=== PATIENT | male | born 1980 ===

== ENCOUNTER 2018-10-22 09:13 | Emergency (ER) | payer SELFPAY ==
[2018-10-22 09:17] VITALS: BMI 25.3
[2018-10-22 09:19] VITALS: BP 109/69; PULSE 69; RESP 16; TEMP 97.8
--- NOTE | 2018-10-22 09:45 | ED PDOC ---
HPI: Male Pain Time Seen by Provider: 10/22/18 09:24 Chief Complaint (Nursing): Male Genitourinary Chief Complaint (Provider): testicular pain History Per: Patient History/Exam Limitations: no limitations Onset/Duration Of Symptoms: Other (Chronic for x7 years ) Current Symptoms Are (Timing): Still Present Associated Symptoms: Urinary Symptoms (dysuria). denies: Fever, Chills, Nausea, Vomiting, Diarrhea Additional Complaint(s): Rico Reeves is a 38 year old male, with no significant past medical history, who presents to the emergency department complaining of a chronic bilateral testicular ongoing for x7 years and penile pain associated with dysuria and frequency. Patient also reports pain in the suprapubic area and states penile pain is new which prompted ED visit. Patient reports being seen at the clinic who referred him to an urologist. Patient states urologist removed a cyst from his testicle. He is sexually active with a single partner but doesn't use protection. He denies any fever, chills, nausea, vomit, diarrhea, hematuria, penile discharge or other medical complaints. PMD: Clinic Past Medical History Reviewed: Historical Data, Nursing Documentation, Vital Signs Vital Signs: Last Vital Signs Temp 97.8 F 10/22/18 09:17 Pulse 69 10/22/18 09:17 Resp 16 10/22/18 09:17 BP 109/69 10/22/18 09:17 Pulse Ox 99 10/22/18 09:17 - Medical History PMH: No Chronic Diseases Denies: Chronic Kidney Disease - Surgical History Other surgeries: epididymal cyst removal - Family History Family History: States: Unknown Family Hx - Social History Alcohol: None Drugs: Denies - Immunization History Hx Tetanus Toxoid Vaccination: No Hx Influenza Vaccination: No Hx Pneumococcal Vaccination: No - Home Medications Home Medications: Ambulatory Orders Medication Instructions Recorded Gabapentin 100 mg PO TID 09/26/14 Meloxicam [Mobic] 15 mg PO DAILY 09/26/14 Naproxen [Naprosyn] 500 mg PO BID PRN #15 tablet 10/22/18 - Allergies Allergies/Adverse Reactions: Allergies Allergy/AdvReac Type Severity Reaction Status Date / Time No Known Allergies Allergy Unverified 08/30/14 15:37 Review of Systems ROS Statement: Except As Marked, All Systems Reviewed And Found Negative Constitutional: Negative for: Fever, Chills Gastrointestinal: Positive for: Abdominal Pain (suprapubic). Negative for: Nausea, Vomiting, Diarrhea Genitourinary Male: Positive for: Dysuria, Frequency, Scrotal Pain, Penile Pain. Negative for: Hematuria, Penile Discharge Physical Exam - Reviewed Nursing Documentation Reviewed: Yes Vital Signs Reviewed: Yes - Physical Exam Appears: Positive for: No Acute Distress Head Exam: Positive for: ATRAUMATIC, NORMAL INSPECTION, NORMOCEPHALIC Skin: Positive for: Normal Color, Warm, Dry Eye Exam: Positive for: Normal appearance, EOMI, PERRL Neck: Positive for: Normal, Painless ROM Cardiovascular/Chest: Positive for: Regular Rate, Rhythm. Negative for: Murmur Respiratory: Positive for: Normal Breath Sounds. Negative for: Respiratory Distress Gastrointestinal/Abdominal: Positive for: Normal Exam, Soft. Negative for: Tenderness, Guarding, Rebound Male Genital Exam: Positive for: normal genitalia (uncircumsized), no hernia, other (Booster Assembler: HAND SIGN WRITERROSEANNE Mayer). Negative for: erythema (or edema), lesions, testicular tenderness (R), testicular tenderness (L), urethral discharge Back: Positive for: Normal Inspection. Negative for: L CVA Tenderness, R CVA Tenderness Extremity: Positive for: Normal ROM (upper and lower extremities). Negative for: Deformity, Swelling Neurological/Psych: Positive for: Awake, Alert, Normal Tone - ECG O2 Sat by Pulse Oximetry: 99 (RA) Pulse Ox Interpretation: Normal Medical Decision Making Medical Decision Making: Time: 09:24 Initial Impression: Initial Plan: --Urine dipstick --Urinalysis --Testes Duplex Complete [US] --Reevaluation 11:15 Testes US FINDINGS: RIGHT TESTICLE: Measures 4.1 x 3.4 x 1.8 cm. Normal echotexture and flow. RIGHT EPIDIDYMIS: Epididymal head measures 0.7 x 0.8 x 0.2 cm. Grossly unremarkable appearance with normal flow. LEFT TESTICLE: Measures 3.9 x 3.3 x 1.9 cm. Normal echotexture and flow. LEFT EPIDIDYMIS: Epididymal head measures 0.8 x 0.7 x 0.5 cm. Grossly unremarkable appearance with normal flow. HYDROCELE: No significant hydrocele. No focal fluid collection in the scrotum to suggest abscess. VARICOCELE: Previously noted left greater than right varicoceles are not as prominent on this present examination. Minimal amount of residual varicoceles are not excluded. OTHER FINDINGS: No scrotal wall thickening is seen. IMPRESSION: No ultrasound evidence of intratesticular mass or torsion. Scribe Attestation: Documented by Malvin Duque, acting as a scribe for Sallie Petersen MD Provider Scribe Attestation: All medical record entries made by the Scribe were at my direction and personally dictated by me. I have reviewed the chart and agree that the record accurately reflects my personal performance of the history, physical exam, medical decision making, and the department course for this patient. I have also personally directed, reviewed, and agree with the discharge instructions and disposition. Disposition - Clinical Impression Clinical Impression: Persistent testicular pain - Disposition Referrals: [facility] [Outside] Lorena Medina MD [Medical Doctor] - Disposition: Routine/Home Disposition Time: 11:45 Condition: STABLE Prescriptions: Naproxen [Naprosyn] 500 mg PO BID PRN #15 tablet PRN Reason: Pain, Moderate (4-7) Instructions: How to Perform a Testicular Self-Exam Forms: [employer] (Kazakh) Print Language: FRENCH
[2018-10-22 10:18] LABS: URINE BILIRUBIN NEGATIVE (NEGATIVE); URINE BLOOD NEGATIVE (NEGATIVE); URINE CLARITY CLEAR (Clear); URINE COLOR YELLOW (YELLOW); URINE GLUCOSE (UA) NEG (NEGATIVE); URINE LEUKOCYTE ESTERASE NEG Leu/uL (Negative); URINE PROTEIN NEGATIVE (NEGATIVE); URINE UROBILINOGEN 0.2-1.0 mg/dL (0.2-1.0)
--- NOTE | 2018-10-22 11:18 | US ---
Date of service: 10/22/2018 HISTORY: Bilateral testicular pain TECHNIQUE: Realtime sonography through the scrotum with color and doppler flow. COMPARISON: 12/28/2014 FINDINGS: RIGHT TESTICLE: Measures 4.1 x 3.4 x 1.8 cm. Normal echotexture and flow. RIGHT EPIDIDYMIS: Epididymal head measures 0.7 x 0.8 x 0.2 cm. Grossly unremarkable appearance with normal flow. LEFT TESTICLE: Measures 3.9 x 3.3 x 1.9 cm. Normal echotexture and flow. LEFT EPIDIDYMIS: Epididymal head measures 0.8 x 0.7 x 0.5 cm. Grossly unremarkable appearance with normal flow. HYDROCELE: No significant hydrocele. No focal fluid collection in the scrotum to suggest abscess. VARICOCELE: Previously noted left greater than right varicoceles are not as prominent on this present examination. Minimal amount of residual varicoceles are not excluded. OTHER FINDINGS: No scrotal wall thickening is seen. IMPRESSION: No ultrasound evidence of intratesticular mass or torsion.
[2018-10-25 15:19] VITALS: O2SAT 99
== END 2018-10-22 12:15 | disposition home or self-care (01) ==
LOC: H.ER 09:13
DX: N50.812 Left testicular pain (principal); N50.811 Right testicular pain

== ENCOUNTER 2018-12-12 16:30 | Emergency (ER) | payer OTHER, SELFPAY ==
[2018-12-12 16:30] VITALS: BMI 25.3
[2018-12-12 17:48] VITALS: PULSE 78; RESP 18; O2SAT 99
--- NOTE | 2018-12-12 18:16 | ED PDOC ---
HPI: Back Time Seen by Provider: 12/12/18 17:24 Chief Complaint (Nursing): Back Pain Chief Complaint (Provider): back pain History Per: Patient History/Exam Limitations: no limitations Additional Complaint(s): 38 y/o M with no significant PMH who presents with back pain for the past 9 days that occurred after reaching up to move hanging clothes. He has been taking Ibuprofen and Tylenol regularly with minimal improvement in pain, last dose was 400mg PO Ibuprofen 5hrs prior to arrival. States that back pain occasionally radiates to left thigh. Denies numbness or tingling in feet or fecal/urinary incontinence. Past Medical History Reviewed: Historical Data, Nursing Documentation, Vital Signs Vital Signs: Last Vital Signs Temp 98.5 F 12/12/18 17:46 Pulse 78 12/12/18 17:46 Resp 18 12/12/18 17:46 BP 103/63 12/12/18 17:46 Pulse Ox 99 12/12/18 17:46 Primary Care Provider: DoctorRosalie - Medical History PMH: No Chronic Diseases Denies: Chronic Kidney Disease - Family History Family History: States: Unknown Family Hx - Immunization History Hx Tetanus Toxoid Vaccination: No Hx Influenza Vaccination: No Hx Pneumococcal Vaccination: No - Home Medications Home Medications: Ambulatory Orders Medication Instructions Recorded Gabapentin 100 mg PO TID 09/26/14 Meloxicam [Mobic] 15 mg PO DAILY 09/26/14 Naproxen [Naprosyn] 500 mg PO BID PRN #15 tablet 10/22/18 Naproxen 500 mg PO BID PRN 7 Days tab 12/12/18 traMADol [Ultram] 50 mg PO BID PRN 3 Days tab 12/12/18 - Allergies Allergies/Adverse Reactions: Allergies Allergy/AdvReac Type Severity Reaction Status Date / Time No Known Allergies Allergy Unverified 12/12/18 17:46 Review of Systems Musculoskeletal: Positive for: Back Pain Neurological: Negative for: Weakness, Numbness Physical Exam - Reviewed Nursing Documentation Reviewed: Yes Vital Signs Reviewed: Yes - Physical Exam Appears: Positive for: No Acute Distress Back: Positive for: Normal Inspection, Vertebral Tenderness (mild tenderness on palpation of lumbar vertebrae with paravertebral tenderness mostly on left. No buttock tenderness. ) Extremity: Positive for: Capillary Refill (< 2 sec), Other (normal ROM with flexion and extension of B/L hips. ). Negative for: Normal ROM (decreased flexion and extension of back), Swelling - ECG O2 Sat by Pulse Oximetry: 99 Medical Decision Making Medical Decision Making: Thoracic and lumbar spine CT w/o contrast Toradol 30mg IM x 1 Flexeril 10mg PO x 1 Re-evaluation 2030 CT Lumbar Spine FINDINGS: ALIGNMENT: Bony alignment is anatomic. DISCS/DEGENERATIVE CHANGES: T12/L1: No significant central canal or neural foraminal stenosis. L1/L2: No significant central canal or neural foraminal stenosis. L2/L3: No significant central canal or neural foraminal stenosis. L3/4: No significant central canal or neural foraminal stenosis. L4/5: No significant central canal or neural foraminal stenosis. At L5-S1, broad-based herniated disc with posterior spurring producing moderate severe bilateral foraminal stenosis and mild canal stenosis. Vacuum disc phenomenon is seen. BONES: No acute fracture or aggressive appearing osseous lesion. SOFT TISSUES: The soft tissues are unremarkable. MISCELLANEOUS: No abnormal contrast enhancement. IMPRESSION: At L5-S1, broad-based herniated disc with posterior spurring producing moderate severe bilateral foraminal stenosis and mild canal stenosis. Vacuum disc phenomenon is seen. CT Thoracic Spine FINDINGS: BONES: No acute fracture or aggressive appearing osseous lesion. ALIGNMENT: Bony alignment is anatomic. DEGENERATIVE CHANGES: Mild multilevel degenerative spondylosis is present. SOFT TISSUES: The soft tissues are unremarkable. IMPRESSION: Mild multilevel degenerative spondylosis. No acute pathology. Case reviewed with Dr. Ibrahim of neurosurgery who states that given lack of bowel/bladder incontinence, pt can follow up as an outpatient. Tramadol 50mg PO x 1 ordered. Patient advised of addictive properties of narcotics such as Tramadol and highly encouraged to use as rescue for pain. Stable for d/c home. Disposition - Clinical Impression Clinical Impression: Lumbar herniated disc - Patient ED Disposition Is Patient to be Admitted: No Discussed With : Nahun Ibrahim Doctor Will See Patient In The: Office Counseled Patient/Family Regarding: Studies Performed, Diagnosis, Need For Followup, Rx Given - Disposition Referrals: Nahun Ibrahim MD [Staff Provider] - Disposition: Routine/Home Disposition Time: 22:28 Condition: STABLE Additional Instructions: Follow up with primary care doctor or neurosurgeon for further treatment of back pain. Take Naproxen as needed for pain. Take Tramadol for severe pain only as it is a narcotic and can be addictive. Prescriptions: Naproxen 500 mg PO BID PRN 7 Days tab PRN Reason: Pain, Moderate (4-7) traMADol [Ultram] 50 mg PO BID PRN 3 Days tab PRN Reason: Pain, Severe (8-10) Instructions: Herniated Disc (DC) Forms: [employer] (Estonian) Print Language: DANISH
[2018-12-12 22:30] VITALS: BP 110/70; TEMP 98
--- NOTE | 2018-12-13 11:55 | CT ---
Date of service: 12/12/2018 PROCEDURE: CT Thoracic Spine without contrast HISTORY: Abrupt onset, acute back pain 9 days ago. No history of trauma provided. COMPARISON: None. TECHNIQUE: Axial computed tomography images were obtained of the thoracic spine without intravenous contrast. Coronal and sagittal reformatted images were created and reviewed. Radiation dose: Total exam DLP = 470.39 mGy-cm. This CT exam was performed using one or more of the following dose reduction techniques: Automated exposure control, adjustment of the mA and/or kV according to patient size, and/or use of iterative reconstruction technique. FINDINGS: VERTEBRAE: Unremarkable. No fracture. Normal alignment. DISCS/SPINAL CANAL/NEURAL FORAMINA: Within the limits of the CT technique, no disc herniation seen. No central canal or neural foraminal stenosis.. PARASPINAL SOFT TISSUES: Unremarkable. OTHER FINDINGS: Unremarkable. IMPRESSION: No significant or acute findings to account for/ related to the clinical presentation. Concordant results (preliminary interpretation) provided by [facility]. Procedure Completed: 18:51. Preliminary Report: Interpreted and electronically signed: 20:00. Final Interpretation: 11:51. December 13, 2018.
--- NOTE | 2018-12-13 11:58 | CT ---
Date of service: 12/12/2018 PROCEDURE: CT Lumbar Spine without contrast HISTORY: Acute onset low back pain 9 days ago. No history of trauma provided. COMPARISON: 07/02/2014 MRI lumbar spine. TECHNIQUE: Axial computed tomography images were obtained of the lumbar spine without the use of intravenous contrast. Coronal and sagittal reformatted images were created and reviewed. Radiation dose: Total exam DLP = 332.77 mGy-cm. This CT exam was performed using one or more of the following dose reduction techniques: Automated exposure control, adjustment of the mA and/or kV according to patient size, and/or use of iterative reconstruction technique. FINDINGS: VERTEBRAE: Unremarkable. No fracture. Normal alignment. DISCS/SPINAL CANAL/NEURAL FORAMINA: L1-2: Unremarkable. L2-3: Unremarkable. L3-4: Unremarkable. L4-5: Unremarkable. L5-S1: Disc degenerative change. Disc space narrowing, vacuum disc phenomenon, partially calcified bulging annulus fibrosus producing foraminal narrowing bilaterally at this level.. PARASPINAL SOFT TISSUES: Unremarkable. OTHER FINDINGS: None. IMPRESSION: No acute findings related to/ accounting for the clinical presentation. Disc degenerative changes limited to the L5-S1 level. Resultant bulging annulus has resulted in narrowing of the exiting neural foramen and impression upon the thecal sac centrally. Concordant results (preliminary interpretation) provided by [facility]. Procedure Completed: 18:59. Preliminary Report: Interpreted and electronically signed: 20:04. Final Interpretation: 11:54. December 13, 2018.
== END 2018-12-12 22:28 | disposition home or self-care (01) ==
LOC: H.ER 16:30
DX: M54.9 Dorsalgia, unspecified (principal)
CPT/HCPCS: 72128; 72131; 96372; 99283; J1885

== ENCOUNTER 2018-12-18 10:02 | Day surgery (SDC) | payer SELFPAY ==
[2018-12-18 10:47] VITALS: BMI 23.8
[2018-12-18] MEDS ORDERED: Iodixanol 320 MG/ML 100 ML BOTTLE IV ONE (12:27)
[2018-12-18] MEDS ORDERED: Lidocaine 1% Inj (20ml) ONE (12:32)
[2018-12-18] MEDS ORDERED: Midazolam 2 MG/2 ML VIAL ONE (12:47)
[2018-12-18] MEDS ORDERED: Propofol 10 mg/ml Inj (20 ML) ONE (12:48)
[2018-12-18] MEDS ORDERED: Sodium Chloride 0.9% 250 ML IV ONE ×2 (13:30→15:30)
--- NOTE | 2018-12-18 13:30 | CP.SDSHP ---
Same Day Surgery H & P - History Proposed Procedure: varicocele embolization Pre-Op Diagnosis: varicocele, pain - Allergies Allergies: Allergies No Known Allergies Allergy (Unverified 12/18/18 10:47) - Physical Exam Vital Signs: Vital Signs 12/18/18 10:47 Temperature 98.3 F Pulse Rate 72 Respiratory 16 Rate Blood Pressure 98/64 L O2 Sat by Pulse 99 Oximetry Mental Status: Alert & Oriented x3 - Impression Impression: Pt with varicocele and testicular pain. Plan varicocele embolization. Informed consent obtained. Pt. Evaluated Today:Candidate for Anesthesia & Procedure: Yes (ASA2 Malampati 2) - Date & Time Date: 12/18/18 Time: 13:00 Short Stay Discharge - Short Stay Discharge Admitting Diagnosis/Reason for Visit: BL VARICOCELE Disposition: HOME/ ROUTINE
--- NOTE | 2018-12-18 13:33 | PCM.SURG1 ---
Surgeon's Initial Post Op Note - Surgeon's Notes Surgeon: Esteban Grijalva MD Resident Athletic Trainer: NONE Type of Anesthesia: IV Sedation Pre-Operative Diagnosis: Varicocele, pain Operative Findings: Fluoroscopic image showed previous left gonadal vein embolization. Left gonadal venogram showed persistent flow in gonadal vein. Post-Operative Diagnosis: Varicocele, pain Operation Performed: Left gonadal venogram and embolization proximal segment. Specimen/Specimens Removed: NONE Estimated Blood Loss: EBL {In ML}: 2 Blood Products Given: N/A Drains Used: No Drains Post-Op Condition: Good Date of Surgery/Procedure: 12/18/18 Time of Surgery/Procedure: 13:30
[2018-12-18 16:09] VITALS: RESP 18; O2SAT 99
[2018-12-18 17:22] VITALS: TEMP 98
[2018-12-18 17:52] VITALS: BP 94/63; PULSE 64
--- NOTE | 2018-12-19 09:58 | VASCULAR ---
PROCEDURE: DATE OF PROCEDURE: 12/18/2018 PROCEDURE: 1. Left gonadal venogram 2. Embolization of left gonadal vein Medications: Patient sedated by anesthesiologist along with physiologic monitoring, 6 cubic centimeters 2 percent lidocaine HISTORY: Left testicular varicocele, scrotal pain. TECHNIQUE: Following informed consent and procedure time-out, the right groin was marked. The patient placed supine on the interventional table and the right groin was prepped and draped in the usual sterile fashion. The right femoral vein was accessed with micropuncture technique and a guidewire was advanced under fluoroscopic guidance into the inferior vena cava. An ultrasound image documenting needle position within the artery was permanently archived. Through a 6 Yi sheath, a non glide Cobra catheter was used to select the left renal vein and a selective left renal venograms performed. Multiple coils are present within the left gonadal vein from previous embolization of left gonadal varicocele. The Cobra catheter was positioned within the left gonadal vein and repeat venogram performed which showed persistent flow in the left gonadal vein coursing towards the scrotum. Given findings of previous left gonadal embolization and persistent flow within the left gonadal vein, a single Amplatzer vascular plug measuring 8 millimeter was deployed within the proximal left gonadal vein. Repeat venogram showed patent renal vein. Flow within the gonadal vein is significantly decreased. The 6 Yi vascular was removed and hemostasis achieved with manual compression. A dressing was applied. There were no immediate complications. IMPRESSION: Previous left gonadal venogram showed embolization of left gonadal vein. There is persistent flow within the left gonadal vein. A single Amplatzer vascular plug measuring 8 millimeters applied within the proximal gonadal vein obscuring flow. The renal vein at completion of case is patent.
== END 2018-12-18 17:49 | disposition home or self-care (01) ==
LOC: H.OPSURG 10:02
PROVIDERS: ATTEND Urology
DX: I86.1 Scrotal varices (principal); N50.82 Scrotal pain; Z87.891 Personal history of nicotine dependence; M54.9 Dorsalgia, unspecified
CPT/HCPCS: 37241; C1768; C1769; J2001; J2250; J2704; J3010; J7030; Q9967